=== PATIENT | female | born 1990 | race Caucasian/White ===

== ENCOUNTER 2022-07-03 16:41 | Observation (INO) ==
[2022-07-03] MEDS ORDERED: Iodixanol (CONTRAST) 320 MG/ML 100 ML SDV IV ONE (17:04)
[2022-07-03 17:49] LABS: ABS Lymphocytes 1.8 10^3/ul (1.0-4.8); ABS Monocytes 0.7 10^3/ul (0-0.8); ABS Neutrophils 9.8 10^3/ul (1.5-7.7); Eosinophil % 0.3 %; Hematocrit 39 % (35-47); Lymphocyte % 14.8 %; Mean Corpuscular HGB Conc 33 g/dL (31-36); Mean Corpuscular Hemoglobin 31 pg (27-31); Mean Corpuscular Volume 92 fL (80-97); Mean Platelet Volume 8.2 fL (7.4-10.4); Platelet Count 416 10^3/uL (150-450); Red Blood Count 4.25 10^6 /uL (3.70-4.87); Red Cell Distribution Width 14 % (10-15); White Blood Count 12.5 10^3/uL (3.5-10.8)
[2022-07-03 18:01] LABS: Activated Partial Thrombo Time 26.3 seconds (26.0-38.0); INR 1.22 (0.88-1.18)
[2022-07-03 18:38] LABS: ALT 14 U/L (7-52); AST 17 U/L (13-39); Albumin 4.4 g/dL (3.2-5.2); Albumin/Globulin Ratio 1.8 (1-3); Alkaline Phosphatase 88 U/L (35-149); Anion Gap 10 mmol/L (2-11); Blood Urea Nitrogen 14 mg/dL (6-24); CO2 Carbon Dioxide 23 mmol/L (22-32); Calcium 9.6 mg/dL (8.6-10.3); Chloride 104 mmol/L (101-111); Cholesterol 211 mg/dL; Globulin 2.5 g/dL (2-4); Glucose 80 mg/dL (70-100); HDL Cholesterol 56.2 mg/dL; LDL Cholesterol 141 mg/dL; Potassium 3.7 mmol/L (3.5-5.0); Sodium 137 mmol/L (135-145); Total Protein 6.9 g/dL (6.4-8.9); Triglycerides 67 mg/dL; eGFR CKD-EPI 98.2 (>60)
[2022-07-03] MEDS ORDERED: Ondansetron 4 mg VIAL 2 MG/ML 2 ml VIAL IV PRN (19:42)
[2022-07-03] MEDS ORDERED: Lactated Ringers 1000 ml BAG 1,000 ML IV ONE (20:00)
[2022-07-03 20:24] LABS: HCG Pregnancy < 0.60 mIU/mL
[2022-07-04 06:19] LABS: Urine Appearance Clear; Urine Color Yellow; Urine Glucose Negative (Negative)
[2022-07-04 06:20] LABS: Urine Bilirubin 1+ (Small) (Negative); Urine Blood Negative (Negative); Urine Ketones 2+ (40mg/dL) (Negative); Urine Nitrite Negative (Negative); Urine Protein 1+ (30 mg/dL) (Negative); Urine Urobilinogen 0.2 (Negative) (Negative)
[2022-07-04 06:27] LABS: Urine Bacteria Absent (Absent); Urine Red Blood Cell Absent (Absent); Urine Squamous Epithelial Cell Present (Absent); Urine White Blood Cell Absent (Absent)
[2022-07-04 16:39] VITALS: BP 97/61
[2022-07-05 15:14] LABS: Act Protein C Resist Ratio 2.8 (>or=2.3)
[2022-07-08 10:34] LABS: Prothrombin 20210 Mutation Negative (Negative)
[2022-07-08 11:03] LABS: DRVVT Screen Ratio 0.89 ratio (<1.20); LAC APTT 26 sec (25 - 37); LAC INR 1.1 (0.9-1.1); Prothrombin Time(LAC) 12.1 sec (9.4 - 12.5)
[2022-07-09 11:02] LABS: Protein C Activity 100 % (70 - 150)
== END 2022-07-04 16:30 | disposition home or self-care (01) ==
LOC: ED 16:41 → EDHOLD 16:41 → SUATTDRO 18:51 → EDHOLD 23:21 → MEDTELE 23:33
PROVIDERS: ADMIT Internal Medicine; ATTEND Internal Medicine